=== PATIENT | female | born 1970 | race Caucasian/White ===

== ENCOUNTER → 2020-12-05 16:03 | Outpatient (CLI) | payer OTHER, SELFPAY ==
--- NOTE | ~2020-12-05 | MM_ITS ---
EXAMINATION: MM screening [facility] BI w julia HISTORY: Screening mammogram TECHNIQUE: Craniocaudal and mediolateral oblique 3-D tomosynthesis images were obtained and synthetic 2-D images were generated. CAD analysis was submitted and interpreted. COMPARISON: 06/15/2019, 04/13/2019, 01/15/2018 BREAST PARENCHYMAL COMPOSITION: There are scattered areas of fibroglandular density. FINDINGS: There is a stable focal asymmetry in the middle third of the right breast, consistent with a benign finding. There is no evidence of suspicious mass, calcification, or architectural distortion to suggest malignancy in either breast. There has been no suspicious interval change. IMPRESSION: 1. No mammographic evidence of malignancy. 2. Recommend routine screening mammography in one year. BI-RADS Category 2: Benign finding(s). Reviewed, dictated and finalized at location A.
== END ==
PROVIDERS: Visit Provider Obstetrics & Gynecology Gynecology
DX: Z12.31 Encounter for screening mammogram for malignant neoplasm of breast (principal)
CPT/HCPCS: 77063; 77067

== ENCOUNTER → 2022-03-06 11:16 | Outpatient (CLI) | payer OTHER, SELFPAY ==
--- NOTE | ~2022-03-06 | MM_ITS ---
EXAMINATION: MM screening [facility] w julia HISTORY: Screening mammogram TECHNIQUE: Craniocaudal and mediolateral oblique 3-D tomosynthesis images were obtained and synthetic 2-D images were generated. CAD analysis was submitted and interpreted. COMPARISON: 12/05/2020, 06/15/2019, 04/13/2017 BREAST PARENCHYMAL COMPOSITION: There are scattered areas of fibroglandular density. FINDINGS: Stable focal asymmetry is again noted in the middle third of the right breast, consistent w ith a benign finding. There is no suspicious mass, calcification, or architectural distortion to sugg est malignancy in either breast. There has been no suspicious interval change. IMPRESSION: 1. No mammographic evidence of malignancy. 2. Recommend routine screening mammography in one year. BI-RADS Category 2: Benign finding(s). Reviewed, dictated and finalized at location A.
== END ==
PROVIDERS: PCP Family Medicine Sports Medicine; Visit Provider Obstetrics & Gynecology Gynecology
DX: Z12.31 Encounter for screening mammogram for malignant neoplasm of breast (principal)
CPT/HCPCS: 77063; 77067

== ENCOUNTER 2022-11-24 12:18 | Emergency (ER) | payer OTHER, SELFPAY ==
[2022-11-24 12:28] VITALS: BP 128/75; PULSE 78; RESP 14; TEMP 36.5; O2SAT 98
[2022-11-24] MEDS: HYDROcodone/acetaminophen (*CRX) 5-325 MG TABLET 1 TAB PO (13:53)
[2022-11-24] MEDS: CYCLOBENZAPRINE HCL 10 MG TABLET PO (13:54)
[2022-11-24] MEDS: KETOROLAC 30 MG/ML VIAL (*BKC) IM (13:54)
--- NOTE | 2022-11-24 13:59 | ED.GENADULT ---
HPI - General Adult General Chief complaint: Neck Pain/Injury Stated complaint: neck pain Time Seen by Provider: 11/24/22 12:31 History of Present Illness HPI narrative: 52-year-old female presented the emergency department for evaluation of right shoulder and neck pain. Patient reports symptoms started on Saturday. Patient has been taking intermittent Tylenol and ibuprofen for this without significant improvement. Patient reports that she has been having increased anxiety secondary to this. Symptoms initially started when she woke up on Saturday morning. Patient reports tightness in her right shoulder and decreased range of motion of the neck due to neck muscles. Patient denies any associated numbness or weakness. Patient denies any specific falls or injuries. Patient has no prior history of neck surgery. Related Data Allergies Allergy/AdvReac Type Severity Reaction Status Date / Time No Known Allergies Allergy Mild Unverified 05/22/10 07:13 Review of Systems Review of Systems: All systems reviewed & are unremarkable except as noted in HPI and below Exam Narrative: APPEARANCE: Well appearing, no pain, no distress, well-nourished. HEAD: normocephalic, atraumatic. EYES: PERRLA/EOMI, conjunctivae clear. NOSE: Normal no drainage EARS:TMS clear with good light reflex. THROAT: Pharynx clear, no exudate. NECK: Supple. No adenopathy, no masses. RESPIRATORY: Airway patent, respirations nonlabored. Clear to auscultation bilaterally, no rales, rhonchi, wheezing. CARDIOVASCULAR: Regular rate and rhythm without murmurs rubs or gallops. ABDOMINAL: Soft, nontender, nondistended, normal bowel sounds MUSCULOSKELETAL: Tenderness on right lateral neck muscles and right deltoid. NEURO: Alert. Cranial nerves II through XII intact. Neurologically in tact with no numbness weakness ataxia. Patient had normal Romberg, normal forward and backward tandem gait. SKIN: Warm, dry. Normal Color Course Course Emergency Course: 52-year-old female presenting to the ED for right shoulder and neck pain consistent with right neck. Patient has a normal neuro exam and reproducible muscular tenderness with no neurologic symptoms. Patient denies any associated headache numbness or weakness. Patient was advised to take ibuprofen for pain control was provided Flexeril for muscle spasm and was provided a small prescription for narcotic pain medication. Patient was advised on reasons to return to the emergency department and on the importance of close follow-up with her primary care physician. All questions and concerns were addressed. Vital Signs Vital signs: Vital Signs Temperature 97.7 F 11/24/22 12:28 Pulse Rate 78 11/24/22 12:28 Respiratory Rate 14 11/24/22 12:28 Blood Pressure 128/75 11/24/22 12:28 Pulse Oximetry 98 11/24/22 12:28 Oxygen Delivery Room Air 11/24/22 12:28 Temperature 97.7 F 11/24/22 12:28 Pulse Rate 74 11/24/22 14:10 Respiratory Rate 16 11/24/22 14:10 Blood Pressure 121/71 11/24/22 14:10 Pulse Oximetry 99 11/24/22 14:10 Oxygen Delivery Room Air 11/24/22 12:28 Medical Decision Making Vital Signs Vital Signs: Vital Signs Temperature 97.7 F 11/24/22 12:28 Pulse Rate 78 11/24/22 12:28 Respiratory Rate 14 11/24/22 12:28 Blood Pressure 128/75 11/24/22 12:28 Pulse Oximetry 98 11/24/22 12:28 Oxygen Delivery Room Air 11/24/22 12:28 Temperature 97.7 F 11/24/22 12:28 Pulse Rate 74 11/24/22 14:10 Respiratory Rate 16 11/24/22 14:10 Blood Pressure 121/71 11/24/22 14:10 Pulse Oximetry 99 11/24/22 14:10 Oxygen Delivery Room Air 11/24/22 12:28 Discharge Plan Discharge Clinical Impression: Torticollis Patient Disposition: Home, Self-Care Condition: Stable Instructions: Antibiotic Form, Neck Pain (ED) Additional Instructions: Scheduled ibuprofen for pain control. Flexeril for muscle spasm. [place] as needed for additional pain control
[2022-11-24 14:10] VITALS: BP 121/71; PULSE 74; RESP 16; O2SAT 99
== END 2022-11-24 14:11 | disposition home or self-care (01) ==
PROVIDERS: Emergency Provider Emergency Medicine; PCP Family Medicine Sports Medicine
DX: M43.6 Torticollis (principal)
CPT/HCPCS: 96372; 99283; A9270; J1885

== ENCOUNTER → 2023-04-10 12:14 | Outpatient (CLI) | payer OTHER, SELFPAY ==
--- NOTE | ~2023-04-10 | MM_ITS ---
EXAMINATION: MM screening [facility] w julia HISTORY: Screening mammogram TECHNIQUE: Craniocaudal and mediolateral oblique 3-D tomosynthesis images were obtained and synthetic 2-D images were generated. CAD analysis was submitted and interpreted. COMPARISON: 03/16/2022, 12/05/2020, 04/13/2019 bilateral screening mammogram examinations 06/15/2019 diagnostic bilateral mammogram and limited left breast ultrasound BREAST PARENCHYMAL COMPOSITION: There are scattered areas of fibroglandular density. FINDINGS: Stable fibroglandular asymmetry since 04/13/2019. There is no evidence of suspicious mass, c alcification, or architectural distortion to suggest malignancy in either breast. There has been no s uspicious interval change. IMPRESSION: 1. No mammographic evidence of malignancy. 2. Recommend routine screening mammography in one year. BI-RADS Category 2: Benign finding(s). Reviewed, dictated and finalized at location A.
--- NOTE | ~2023-04-10 | DEXA_ITS ---
Bone Density Report Name: BEENA DUMONT Age: 52 Sex: Female Ethnicity: White Date of : 1970 Indication: postmenopausal; screening for osteoporosis; Referring Provider: CRIS HAWKINS Study: Bone densitometry was performed. Exam Date: April 10, 2023 Accession number: [id number] Bone Density: Region BMD T-score Z-score Classification AP Spine (L1-L4) 1.131 0.8 1.6 Normal Femoral Neck (Left) 0.759 -0.8 0.0 Normal Total Hip (Left) 0.981 0.3 0.8 Normal Femoral Neck (Right) 0.760 -0.8 0.0 Normal Total Hip (Right) 0.930 -0.1 0.4 Normal Total Hip Mean 0.956 0.1 0.6 Normal World Health Organization criteria for BMD impression classify patients as: Normal (T-score at or above -1.0), Osteopenia (T-score between -1.0 and -2.5), or Osteoporosis (T-score at or below -2.5). 10-year Fracture Risk: FRAX not reported because: All T-scores for Spine Total, Hip Total, Femoral Neck at or above -1.0 Clinical Information Provided by Patient: Smokes Has used the following medications: Vitamin D, THYROID MEDICATION (HYPERTHYROID) Patient maximum height was 64.5 Menopause Age: 40 No regular weight bearing exercise Does not regularly consume dairy products Drinks caffeinated beverages Onset of menses at age 16 Number of children 3 Impression: The patient has normal bone mass. The patient has risk factors, including: smoking. Discussion: BONE DENSITY IS ABOVE THE MINIMUM DESIRABLE LEVEL AT ALL SKELETAL SITES TESTED. This patient?s bone mineral density is above the minimum desirable level (T-score -1.0 or better) at all sites measured. The patient should follow a healthful lifestyle (good nutrition with adequate calcium and vitamin D, and appropriate weight-bearing exercise). Follow-Up: Consider repeating this study in 5 years or sooner if there is some new clinical indication. Reported by: PATT on 04/10/2023 12:31:00 PM. Reviewed, dictated and finalized at location Pratik ZARATE
== END ==
PROVIDERS: PCP Obstetrics & Gynecology Gynecology; Visit Provider Obstetrics & Gynecology Gynecology
DX: Z12.31 Encounter for screening mammogram for malignant neoplasm of breast (principal); Z78.0 Asymptomatic menopausal state
CPT/HCPCS: 77063; 77067; 77080

== ENCOUNTER 2024-06-04 12:26 | Outpatient (CLI) | payer OTHER, SELFPAY ==
--- NOTE | ~2024-06-04 | MM_ITS ---
EXAMINATION: MM screening [facility] w [facility] HISTORY: Screening TECHNIQUE: Craniocaudal and mediolateral oblique 3-D tomosynthesis images were obtained and synthetic 2-D images were generated. CAD analysis was submitted and interpreted. COMPARISON: 01/15/2018 BREAST PARENCHYMAL COMPOSITION: There are scattered areas of fibroglandular density. FINDINGS: There is no evidence of suspicious mass, calcification, or architectural distortion to sugg est malignancy in either breast. There has been no suspicious interval change. IMPRESSION: 1. No mammographic evidence of malignancy. 2. Recommend routine screening mammography in one year. BI-RADS Category 1: Negative Reviewed, dictated and finalized at location B. A [employer]
== END 2024-06-04 12:27 | disposition home or self-care (01) ==
LOC: MICIMG 12:26
PROVIDERS: PCP Obstetrics & Gynecology Gynecology; Visit Provider Obstetrics & Gynecology Gynecology
DX: Z12.31 Encounter for screening mammogram for malignant neoplasm of breast (principal)
CPT/HCPCS: 77063; 77067